=== PATIENT | female | born 1955 | race Caucasian/White ===

== ENCOUNTER → 2021-08-25 11:59 | Outpatient (REF) | payer MEDICARE, SELFPAY ==
--- NOTE | 2021-08-25 12:06 | CA_ITS ---
Transthoracic Echocardiogram Patient (Last, First, Middle): Karen Lambert, Gender: Female Date of : 1955 Age: 66 Procedure Date: 08/25/2021 Procedure Type: Transthoracic Echocardiogram Location: [facility] Height: 162.56 cm Weight: 60.78 kg BSA: 1.65 m2 Heart Rate: bpm BP: 128 / 60 mmHg Manufacturing Teacher: SB Referring MD: Nomra Carcamo NP Symptoms: CARDIOTOXIC CHEMOTHERAPY MONITORING Z01.818 Study Quality: Fair ECG Rhythm: Sinus Conclusions: - The left ventricular systolic function is normal. The calculated ejection fraction is 65% by biplane method. - LV peak global longitudinal strain -18.5%. - Basal inferior/inferolateral wall appear hypokinetic in some views. - No obvious valvular pathology seen on this study. Findings Left Ventricle Normal left ventricular cavity size. The left ventricular systolic function is normal. The calculated ejection fraction is 65% by biplane method. Diastolic function is normal for age. There is mild septal asymmetric hypertrophy. LV peak global longitudinal strain -18.5%. Basal inferior/inferolateral wall appear hypokinetic in some views. Right Ventricle Normal right ventricular cavity size and systolic function. Atria Both atria are normal in size. Aortic Valve There is a normal trileaflet aortic valve. There is no aortic valve stenosis. There is no aortic valve regurgitation. Mitral Valve The mitral valve appears normal. There is trace mitral valve regurgitation. There is no mitral valve stenosis. Pulmonic Valve There is trace pulmonic valve regurgitation. Tricuspid Valve Normal tricuspid valve structure. There is trace tricuspid valve regurgitation. The pulmonary artery systolic pressure is normal. Great Vessels The asc aorta is normal in size. Venous The inferior vena cava is normal in size and collapses greater than 50% with inspiration. Pericardium/Pleural There is no evidence of pericardial effusion. Prior Study Comparison Changes noted compared to prior study dated: 05/04/2021. Wall motion abnormality not described in prior study from [facility]. Recommendations, Care & Conclusions No obvious valvular pathology seen on this study. Measurements 2D Linear Measurements IVSd: 1.08 0.6-0.9/0.6-1.0 cm LVIDd: 4.11 3.9-5.3/4.2-5.9 cm LVIDd Index: 2.49 2.4-3.2/2.2-3.1 cm/m2 LVIDs: 2.54 2.0-3.6 cm LVPWd: 0.70 0.7-1.1 cm LA Diam: 2.90 2.7-3.8/3.0-4.0 cm LAIDs Index: 1.76 1.5-2.3 cm/m2 LV Mass: 139.77 67-162/88-224 g LV Mass Index: 84.71 43-95/49-115 g/m2 LVOT Diam: 2.00 3.0+(-)1.3 cm 2D Systolic Function EF 4C: 68.40 >55% EF 2C: 62.20 >55% EF BiP: 64.80 >55% Mitral Valve MV Pk E: 0.70 MV PK A: 0.77 MV Decel Time: 237.00 E/A: 0.90 E'Lateral: 8.49 E'Medial: 6.09 E/E' Med: 11.50 E/E' Lat: 8.30 PHT: 69.00 MVA PHT: 3.19 Decel Hubbard: 2.97 Aortic Valve AoV Pk Jack: 1.11 AoV Mn Jack: 0.74 AoV VTI: 0.21 AoV Pk Grad: 5.00 Aov Mn Grad: 2.00 VANESSA Cont.VTI: 2.81 LVOT LVOT Pk Jack: 0.92 LVOT Mn Jack: 0.54 LVOT VTI: 0.19 LVOT Pk Grad: 3.00 LVOT Mn Grad: 1.00 LVOT Diam: 2.00 LVOT Area: 3.14 Diastolic Function MV Pk E: 0.70 MV Pk A: 0.77 E/A: 0.90 E'Medial: 6.09 E/E' Med: 11.50 E' Laterial: 8.49 E/E' Lat: 8.30 Right Ventricle TAPSE (mm): 20.70 TVS' Jack: 11.40 Tricuspid Valve TR Pk Jack: 2.05 TR Pk Grad: 17.00 RA Press: 3.00 Great Vessels Aorta Sinus of Valsalva: 2.86 2.0-3.[address] Ridge: 2.96 1.7-3.4 cm Ao Asc: 3.00 2.1-3.4 cm Pulmonary Veins Pulm Vein S/D 1.30 Pulmonary Valve PV Pk Jack: 0.88 Peak PV Grad: 3.00 Updated in Other Vendor System with Status of Final Durga Correa MD electronically signed on 08/26/2021 12:03:22 PM with status of Final
== END ==
LOC: HO.CARD 11:59
PROVIDERS: Visit Provider Nurse Practitioner Family
DX: Z51.81 Encounter for therapeutic drug level monitoring (principal); Z79.899 Other long term (current) drug therapy
CPT/HCPCS: 93306; 93356